=== PATIENT | female | born 1965 | race Caucasian/White ===

== ENCOUNTER 2020-06-21 08:00 | Outpatient (REF) | payer BC, SELFPAY ==
--- NOTE | 2020-06-21 08:05 | MM_ITS ---
EXAMINATION: MM SCREENING DIGITAL BREAST TOMOSYNTHESIS, BILATERAL CLINICAL INFORMATION: Screening. Asymptomatic. The lifetime risk of breast cancer based on the Tyrer-Cuzick Model is 13%. COMPARISON: Mammography: 06/19/2019, 06/12/2018, 05/22/2017 TECHNIQUE: Digital breast tomosynthesis is performed in both the craniocaudal and mediolateral oblique views along with computer-aided detection (CAD). Synthesized 2D images are generated from the tomosynthesis. FINDINGS: There are scattered areas of fibroglandular density (ACR BI-RADS breast composition Category b). There are no significant masses, abnormal calcifications, or other abnormalities. Parenchymal pattern is similar to prior exams. There is no developing density. No significant changes. MM/MM tomosynthesis screening BI IMPRESSION: No mammographic evidence of malignancy. ASSESSMENT: BI-RADS 1: Negative RECOMMENDATION: Routine annual mammography screening. This patient's information was entered into a reminder system with a target due date for their next mammogram.
== END 2020-06-21 08:01 | disposition home or self-care (01) ==
LOC: HO.MAMMO 08:00
PROVIDERS: PCP Internal Medicine; Visit Provider Internal Medicine
DX: Z12.31 Encounter for screening mammogram for malignant neoplasm of breast (principal)
CPT/HCPCS: 77063; 77067

== ENCOUNTER 2021-01-08 08:16 | Outpatient (REF) | payer BC, SELFPAY ==
--- NOTE | ~2021-01-08 | XR_ITS ---
EXAMINATION: XR CHEST CLINICAL INFORMATION: Asthma. Cough and wheezing. COMPARISON: Previous chest x-ray most recent September 2017 TECHNIQUE: 2 views of the chest were obtained. FINDINGS: The cardiac and mediastinal contours are stable. There is a 1 cm nodule in the left lung base. This is not seen on the lateral view and may represent a nipple shadow. The lungs are otherwise clear. There is no pleural effusion or pneumothorax. There are mild degenerative changes of the spine. XR/XR chest 2V IMPRESSION: 1 cm nodule at the left lung base, question representing a nipple shadow. Follow-up chest x-ray with nipple markers recommended. Otherwise unremarkable exam.
[2021-01-08 08:49] LABS: Basophils Percent Auto 1.2 % (0-2); Eosinophils Absolute Auto 0.1 X10*3/uL (0.0-0.4); Eosinophils Percent Auto 4.3 % (0-4); Hematocrit 40.4 % (37-47); Hemoglobin 13.2 g/dl (12.0-16.0); Imm Gran Abs Auto 0.02 X10*3/uL (0.00-0.03); Imm Gran Pct Auto 0.6 % (0.0-0.4); Lymphocytes Absolute Auto 1.3 X10*3/uL (1.2-4.9); Lymphocytes Percent Auto 39.6 % (20-40); MANUAL DIFF FLAG NO; Mean Corpuscular HGB Conc 32.7 g/dl (31.0-35.0); Mean Corpuscular Hemoglobin 32.1 pg (27.0-33.0); Mean Corpuscular Volume 98.3 fL (80-98); Mean Platelet Volume 9.8 fL (9.4-12.3); Monocytes Absolute Auto 0.4 X10*3/uL (0.1-1.2); Monocytes Percent Auto 12.9 % (2-11); Neutrophils Absolute Auto 1.4 X10*3/uL (2.0-8.3); Neutrophils Percent Auto 41.4 % (45-73); Platelet Count 214 X10*3/uL (160-400); Red Blood Count 4.11 X10*6/uL (4.20-5.50); Red Cell Distribution Width 12.7 % (11.0-16.0); White Blood Count 3.3 X10*3/uL (4.8-10.8)
[2021-01-08 09:23] LABS: Anion Gap 14 (12-20); Blood Urea Nitrogen 13 mg/dL (9-16); Calcium 9.3 mg/dL (8.4-10.2); Carbon Dioxide 27 mmol/L (22-29); Chloride 105 mmol/L (96-108); Estimated Glomerular Filt Rate > 60; Glucose Random 105 mg/dL (60-115); Potassium 4.6 mmol/L (3.3-5.1); Sodium 141 mmol/L (135-145)
[2021-01-08 09:34] LABS: Free T4 (Free Thyroxine) 1.32 ng/dL (0.71-1.85); Thyroid Stimulating Hormone 5.59 uIU/mL (0.32-4.0)
== END 2021-01-08 08:17 | disposition home or self-care (01) ==
LOC: HO.LAB 08:16
PROVIDERS: PCP Internal Medicine; Visit Provider Internal Medicine
DX: J45.909 Unspecified asthma, uncomplicated (principal); E03.9 Hypothyroidism, unspecified; R05 Cough
CPT/HCPCS: 36415; 71046; 80048; 84439; 84443; 85025

== ENCOUNTER 2021-01-15 10:08 | Outpatient (REF) | payer BC, SELFPAY ==
--- NOTE | ~2021-01-15 | XR_ITS ---
EXAMINATION: XR CHEST CLINICAL INFORMATION: Follow-up abnormal chest radiograph. COMPARISON: Chest radiograph dated 01/08/2021. TECHNIQUE: 2 views of the chest were obtained. FINDINGS: No airspace consolidation. Previously seen possible nodule along the left lung base is not appreciated on the current examination. No pleural effusion or pneumothorax. Stable cardiomediastinal silhouette. XR/XR chest 2V IMPRESSION: Unremarkable examination. Previously seen possible nodule in the left lung base not appreciated on the current examination.
== END 2021-01-15 10:09 | disposition home or self-care (01) ==
LOC: HO.XRAY 10:08
PROVIDERS: PCP Internal Medicine; Visit Provider Internal Medicine
DX: R91.8 Other nonspecific abnormal finding of lung field (principal)
CPT/HCPCS: 71046

== ENCOUNTER 2021-08-20 07:41 | Outpatient (REF) | payer BC, SELFPAY ==
--- NOTE | ~2021-08-20 | MM_ITS ---
EXAMINATION: MM SCREENING DIGITAL BREAST TOMOSYNTHESIS, BILATERAL CLINICAL INFORMATION: Screening. Asymptomatic. The lifetime risk of breast cancer based on the Tyrer-Cuzick Model is 12%. COMPARISON: Mammography: 06/21/2020, 06/19/2019, 06/12/2018, 05/22/2017 TECHNIQUE: Digital breast tomosynthesis is performed in both the craniocaudal and mediolateral oblique views along with computer-aided detection (CAD). Synthesized 2D images are generated from the tomosynthesis. Additional right CC view is provided. FINDINGS: There are scattered areas of fibroglandular density (ACR BI-RADS breast composition Category b). The right breast is unremarkable. There is no interval mass or architectural abnormality or developing density. Neither breast shows abnormal calcifications. The axilla and skin contours are unremarkable. Left CC view has 0.4 cm nodular asymmetry posterior outer film margin approximately 14 cm from nipple. Finding is likely beyond field of view on most prior exams. Patient will be recalled for additional imaging. MM/MM tomosynthesis screening BI IMPRESSION: 1. Left: Small nodular asymmetric density at posterior film margin CC view 14 cm from nipple. 2. Right: No mammographic evidence of malignancy. ASSESSMENT: BI-RADS 0: Incomplete - Need Additional Imaging Evaluation RECOMMENDATION: 1. Additional views of the left breast (exaggerated CC, MLO changed angle). 2. Targeted ultrasound if warranted after review of the additional views. 3. Radiology department staff will contact the patient for additional imaging. This patient's information was entered into a reminder system with a target due date for their next mammogram.
== END 2021-08-20 07:42 | disposition home or self-care (01) ==
LOC: HO.MAMMO 07:41
PROVIDERS: Visit Provider Internal Medicine
DX: Z12.31 Encounter for screening mammogram for malignant neoplasm of breast (principal)
CPT/HCPCS: 77063; 77067

== ENCOUNTER 2021-08-29 13:28 | Outpatient (REF) | payer BC, SELFPAY ==
--- NOTE | ~2021-08-29 | MM_ITS ---
EXAMINATION: MM DIAGNOSTIC DIGITAL BREAST TOMOSYNTHESIS, LEFT CLINICAL INFORMATION: Recall from screening for small nodular asymmetric density near posterior film margin outer left breast review. Finding beyond field of view on other prior outside exams. COMPARISON: Mammography: 08/20/2021, 06/21/2020, 06/19/2019, 06/12/2018 TECHNIQUE: Digital breast tomosynthesis is performed. 2D images are generated from the tomosynthesis. The following views are obtained: Exaggerated CC, steep MLO. FINDINGS: There are scattered areas of fibroglandular density (ACR BI-RADS breast composition Category b). The additional views demonstrate a small intramammary node posterior outer left breast corresponding to the finding on recent mammography. Margins are circumscribed with small notched hilus. Results are discussed with the patient at time of visit. MM/MM tomosynthesis added views L IMPRESSION: Additional views show incidental small intramammary node posterior outer left breast. ASSESSMENT: BI-RADS 2: Benign RECOMMENDATION: Routine annual mammography screening. This patient's information was entered into a reminder system with a target due date for their next mammogram.
== END 2021-08-29 13:29 | disposition home or self-care (01) ==
LOC: HO.MAMMO 13:28
PROVIDERS: PCP Internal Medicine; Visit Provider Internal Medicine
DX: N64.89 Other specified disorders of breast (principal)
CPT/HCPCS: 77061; 77065

== ENCOUNTER 2021-09-30 10:33 | Outpatient (REF) | payer BC, SELFPAY ==
[2021-09-30 11:50] LABS: Influenza A PCR NEGATIVE (Negative); Influenza B PCR NEGATIVE (Negative); Resp Syncy Virus RNA Qual PCR NEGATIVE (Negative); SARS COV2 PCR INHOUSE POSITIVE (Negative)
== END 2021-09-30 10:34 | disposition home or self-care (01) ==
LOC: HO.LNP 10:33
PROVIDERS: Visit Provider Internal Medicine
DX: R09.89 Other specified symptoms and signs involving the circulatory and respiratory systems (principal); Z20.822 Contact with and (suspected) exposure to COVID-19
CPT/HCPCS: 0241U

== ENCOUNTER 2022-09-23 10:52 | Outpatient (REF) | payer BC, SELFPAY | END 2022-09-23 10:53 | disposition home or self-care (01) | LOC: HO.LAB 10:52 | PROVIDERS: PCP Internal Medicine; Visit Provider Internal Medicine | DX: Z13.89 Encounter for screening for other disorder (principal) ==

== ENCOUNTER 2022-09-30 09:49 | Outpatient (REF) | payer BC, SELFPAY ==
[2022-09-30 10:00] LABS: MANUAL DIFF FLAG NO
[2022-09-30 10:30] LABS: Basophils Percent Auto 0.7 % (0-2); Eosinophils Absolute Auto 0.1 X10*3/uL (0.0-0.4); Eosinophils Percent Auto 1.9 % (0-4); Hemoglobin 14.2 g/dl (12.0-16.0); Imm Gran Abs Auto 0.04 X10*3/uL (0.00-0.03); Imm Gran Pct Auto 0.7 % (0.0-0.4); Lymphocytes Absolute Auto 1.6 X10*3/uL (1.2-4.9); Lymphocytes Percent Auto 30.3 % (20-40); Mean Corpuscular HGB Conc 33.8 g/dl (31.0-35.0); Mean Corpuscular Hemoglobin 32.2 pg (27.0-33.0); Mean Corpuscular Volume 95.2 fL (80.0-98.0); Monocytes Absolute Auto 0.6 X10*3/uL (0.1-1.2); Monocytes Percent Auto 10.9 % (2-11); Neutrophils Percent Auto 55.5 % (45-73); Platelet Count 271 X10*3/uL (160-400); Red Blood Count 4.41 X10*6/uL (4.20-5.50); Red Cell Distribution Width 12.7 % (11.0-16.0); White Blood Count 5.3 X10*3/uL (4.8-10.8)
[2022-09-30 11:30] LABS: Alanine Aminotransferase 41 U/L (0-31); Albumin Level 4.3 g/dL (3.5-5.0); Alkaline Phosphatase 66 U/L (39-117); Anion Gap 14 (12-20); Aspartate Amino Transferase 25 U/L (5-31); Bilirubin Total 0.7 mg/dL (0.0-1.0); Blood Urea Nitrogen 12 mg/dL (9-16); Calcium 9.2 mg/dL (8.4-10.2); Carbon Dioxide 26 mmol/L (22-29); Chloride 103 mmol/L (96-108); Cholesterol 249 mg/dL; Estimated Glomerular Filt Rate > 60; Glucose Fasting 109 mg/dL (60-99); HDL Cholesterol 61 mg/dL; LDL Cholesterol Calculated 136 mg/dl; Potassium 4.4 mmol/L (3.3-5.1); Sodium 139 mmol/L (135-145); Total Protein 6.9 g/dL (6.5-8.0); Triglycerides 262 mg/dL
[2022-09-30 11:48] LABS: Free T4 (Free Thyroxine) 0.99 ng/dL (0.71-1.85); Thyroid Stimulating Hormone 6.93 uIU/mL (0.32-4.0)
== END 2022-09-30 09:50 | disposition home or self-care (01) ==
LOC: HO.LAB 09:49
PROVIDERS: PCP Internal Medicine; Visit Provider Internal Medicine
DX: Z00.00 Encounter for general adult medical examination without abnormal findings (principal); E03.9 Hypothyroidism, unspecified
CPT/HCPCS: 36415; 80053; 80061; 84439; 84443; 85025

== ENCOUNTER 2022-10-13 14:47 | Outpatient (REF) | payer BC, SELFPAY ==
--- NOTE | ~2022-10-13 | MM_ITS ---
EXAMINATION: BONE DENSITOMETRY CLINICAL INDICATION: Asymptomatic menopausal state. COMPARISON: This is the patient's baseline examination. TECHNIQUE: Using a [employer] DXA System (software version: 13.1) manufactured by [employer], dual-energy x-ray absorptiometry was performed of the lumbar spine and left hip. The images are of good technical quality. Summary results are attached. FINDINGS: AP SPINE L1-L4: BMD 1.330 g/cm2, Z-score 1.5, T-score 1.3, normal. LEFT FEMUR, NECK: BMD 0.936 g/cm2, Z-score -0.1, T-score -0.7, normal. LEFT FEMUR, TOTAL: BMD 0.979 g/cm2, Z-score 0.0, T-score -0.2, normal. IDENTIFIED RISK FACTORS: Menopause. HISTORY OF FRACTURE: None listed. MEDICATIONS: None listed. MM/XR DEXA axial skeleton IMPRESSION: 1. DIAGNOSIS: Normal bone density based on the lowest T-score value of -0.7 in the femoral neck applying World Health Organization criteria. 2. 10-YEAR FRACTURE RISK PREDICTION, FRAX: According to the guidelines, FRAX calculation should only be performed on patients in the osteopenia bone density category. Therefore, FRAX was not performed on this patient. 3. Treatment Recommendations: NOF guidelines recommend consideration for treatment in postmenopausal women and men age 50 and older presenting with the following: -A hip or vertebral (clinical or morphometric) fracture. -T-score less than or equal to -2.5 at the femoral neck or spine after appropriate evaluation to exclude secondary causes. -Low bone mass at the hip or spine and a 10-year fracture probability by FRAX of greater than or equal to 3% for hip fracture or greater than or equal to 20% for major osteoporotic fracture based on the [place] adapted WHO algorithm. 4. Other Recommendations: All treatment decisions require clinical judgment and consideration of individual patient factors, including patient preferences, comorbidities, previous drug use, risk factors not captured in the FRAX model (e.g. frailty, falls, vitamin D deficiency, increased bone turnover, interval significant decline in bone density) and possible under or overestimation of fracture risk by FRAX. FUTURE SCAN RECOMMENDATION: People with diagnosed cases of osteoporosis or at high risk for fracture should have regular bone mineral density tests. For patients eligible for Medicare, routine testing is allowed once every 2 years. The testing frequency can be increased to one year for patients who have rapidly progressing disease, those who are receiving or discontinuing medical therapy to restore bone mass, or have additional risk factors.
--- NOTE | ~2022-10-13 | MM_ITS ---
EXAMINATION: MM SCREENING DIGITAL BREAST TOMOSYNTHESIS, BILATERAL CLINICAL INFORMATION: Screening. Asymptomatic. The lifetime risk of breast cancer based on the Tyrer-Cuzick Model is 8%. COMPARISON: Mammography: August 29, 2021 and studies dating back to February 13, 2007 TECHNIQUE: Digital breast tomosynthesis is performed in both the craniocaudal and mediolateral oblique views along with computer-aided detection (CAD). Synthesized 2D images are generated from the tomosynthesis. FINDINGS: There are scattered areas of fibroglandular density (ACR BI-RADS breast composition Category b). There are no significant masses, abnormal calcifications, or other abnormalities. MM/MM tomosynthesis screening BI IMPRESSION: No significant changes from prior exam. ASSESSMENT: BI-RADS 1: Negative RECOMMENDATION: Routine annual mammography screening. This patient's information was entered into a reminder system with a target due date for their next mammogram.
== END 2022-10-13 14:48 | disposition home or self-care (01) ==
LOC: HO.MAMMO 14:47
PROVIDERS: Visit Provider Internal Medicine
DX: Z12.31 Encounter for screening mammogram for malignant neoplasm of breast (principal); Z13.820 Encounter for screening for osteoporosis; Z78.0 Asymptomatic menopausal state
CPT/HCPCS: 77063; 77067; 77080

== ENCOUNTER 2023-05-07 11:07 | Outpatient (AMB) | payer BC, SELFPAY ==
[2023-05-07 13:32] VITALS: BP 160/92; PULSE 85; TEMP 36.4; O2SAT 96; BMI 33.9
--- NOTE | 2023-05-07 13:32 | MHC.OFFWIV ---
Intake Vital Signs 05/07/23 13:32 Height 5 ft 5 in Weight 92.533 kg BMI 33.9 BP 160/92 H Blood Pressure Location Rt brachial Position Sitting Pulse 85 Pulse Source Pulse Oximeter Temp 97.6 F Temp Source Temporal Artery Scan Pulse Oximetry (%) 96 Intake Visit Reasons: EST/Left hand broken pinky (lobby) Intake Note: pt is here for c/o left hand possible broken pinky Patient Tobacco Use Status: Never used Tobacco Allergies No Known Allergies [No Known Allergies*] Allergy (Verified 05/07/23 13:32) Do you need a note to return to daycare/school/sports/work: Yes HPI EST/Left hand broken pinky (lobby) HPI Details Patient experienced a fall today while walking her dog, jamming her left 5th digit in an attempt to catch her fall. She noted initially the digit was laterally displaced at the MCP joint although with ice and elevation it seemed to go back into place. She is having swelling and pain at the MCP joint but is able to move MCP PIP DI P. Denies other injury. [facility] Social History Patient Tobacco Use Status: Never used Tobacco Review of Systems Const Reports as per HPI and Reports no additional complaints Skin/Breast Denies lesions Neuro Reports no additional complaints and Reports as per HPI Physical Exam Vital Signs: Last Vital Signs Temp 97.6 F 05/07/23 13:32 Pulse 85 05/07/23 13:32 BP 160/92 H 05/07/23 13:32 Pulse Ox 96 05/07/23 13:32 BMI result Body Mass Index 33.9 Const General: cooperative, comfortable and no acute distress Orientation/consciousness: patient oriented x3 Resp Effort & Inspection: normal respiratory effort Auscultation: clear to auscultation bilaterally Cardio Rate: regular rate Rhythm: regular rhythm Heart sounds: S1 normal heart sound present and S2 normal heart sound present Neuro General: patient oriented x3 Extrem Left upper extremity: wrist (Within normal limits) and hand Details: neuromotor exam normal, neurosensory exam normal, tendon exam normal, tenderness Location: of the 5th digit (MCP to PIP), normal ROM of fingers and swelling (Most prominent over 5th MCP); no abrasions, no lacerations and no ecchymosis Results Reviewed Results Reviewed: X-ray contemporaneously read by me without acute finding. Will report radiology results as available. Assessment & Plan Assessment & Plan (1) Hand injury: Code(s): S69.90XA - Unspecified injury of unspecified wrist, hand and finger(s), initial encounter Qualifiers: Encounter type: initial encounter Laterality: left Qualified Code(s): S69.92XA - Unspecified injury of left wrist, hand and finger(s), initial encounter Plan: Patient advised to rest ice and elevate. Gentle range of motion daily as tolerated. I sent a prescription for ibuprofen 800 mg t.i.d. can reduce dosage and frequency has pain and swelling resolves. I have placed an orthopedics referral in case symptoms persisted she may need OT for further evaluation, can cancel order for if symptoms improve. 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 Orders: Referrals Orthopedics Referral S69.90XA - Unspecified injury of unspecified wrist, hand and finger(s), initial encounter Medications: New ibuprofen TID x 3 weeks for left knee pain then PRN thereafter for pain 800 mg PO TID 90 tabs 0RF Coding Level of Care Code Est Pt Level 4 (33054) Diagnoses Injury of left hand, initial encounter S69.92XA Encounter type: initial encounter Laterality: left
== END 2023-05-07 14:32 | disposition home or self-care (01) ==
PROVIDERS: PCP Internal Medicine; Visit Provider Physician Assistant
DX: S69.92XA Unspecified injury of left wrist, hand and finger(s), initial encounter (principal)
CPT/HCPCS: 99214

== ENCOUNTER 2023-05-07 13:56 | Outpatient (REF) | payer BC, SELFPAY ==
--- NOTE | ~2023-05-07 | XR_ITS ---
EXAMINATION: XR HAND, LEFT CLINICAL INFORMATION: Pain after fall COMPARISON: None available. TECHNIQUE: PA, lateral, and oblique views of the left hand. FINDINGS: Visualized portion of the distal radius and ulna demonstrate no fracture. Carpal rows are well-maintained. No carpal bone fracture. No metacarpal or phalangeal fracture. No significant degenerative changes. No focal soft tissue swelling. No radiopaque foreign body. XR/XR hand LT min 3V IMPRESSION: Unremarkable radiographs of the left hand.
== END 2023-05-07 13:57 | disposition home or self-care (01) ==
LOC: HO.HMGCX 13:56
PROVIDERS: PCP Internal Medicine; Visit Provider Physician Assistant
DX: S69.92XA Unspecified injury of left wrist, hand and finger(s), initial encounter (principal)
CPT/HCPCS: 73130

== ENCOUNTER 2023-05-23 09:20 | Outpatient (REF) | payer BC, SELFPAY ==
--- NOTE | ~2023-05-23 | XR_ITS ---
EXAMINATION: XR HAND, RIGHT CLINICAL INFORMATION: Pain COMPARISON: Right hand radiograph from 11/01/2019 TECHNIQUE: 5 views of the right hand. FINDINGS: No acute visible fracture or dislocation. Mild multi joint arthritic changes. Joint spaces and alignment are otherwise maintained. Soft tissues are unremarkable. XR/XR hand RT min 3V IMPRESSION: 1. No acute visible fracture or dislocation. 2. Mild multi joint arthritic changes.
== END 2023-05-23 09:21 | disposition home or self-care (01) ==
LOC: HO.HOSX 09:20
PROVIDERS: PCP Internal Medicine; Visit Provider Physician Assistant
DX: S63.601A Unspecified sprain of right thumb, initial encounter (principal); S63.617A Unspecified sprain of left little finger, initial encounter
CPT/HCPCS: 73130

== ENCOUNTER 2023-05-23 09:20 | Outpatient (AMB) | payer BC, SELFPAY ==
--- NOTE | 2023-05-23 09:37 | MHC.OFFVIS ---
Intake Vital Signs 05/23/23 09:44 Height 5 ft 5 in Weight 204 lb BMI 33.9 Intake Visit Reasons: N/P right pinky/thumb Intake Note: Kylie 58 year old female who is left hand dominant presents today for a new patient visit for her right thumb and left little finger. She was walking her daughters dog on 05/07/23 and was holding on to the railing and injured her pinky and thumb while attempting to catch her fall. States currently thumb is still swollen and limited ROM in her pinky. Denies numbness or tingling. Allergies No Known Allergies [No Known Allergies*] Allergy (Verified 05/23/23 09:44) HPI N/P right pinky/thumb HPI Details Ms. Seaman is a 58 year old left hand dominant female who presents today for a new patient visit for her right thumb and left little finger. She was walking her daughters dog on 05/07/23 and was holding on to the railing when the dog pulled the leash causing her to injure her left little finger and right thumb while attempting to catch her fall. States currently right thumb is still swollen and slightly limited ROM in her left little finger. Denies numbness or tingling. PFS (Updated 05/23/23 @ 09:44 by KALEY Cartagena) Patient Tobacco Use Status: Never used Tobacco Current occupational status: employed Current occupation: left hand / customer service Review of Systems Const All systems reviewed & are unremarkable except as noted in HPI and below Physical Exam Vital Signs: BMI result Body Mass Index 33.9 Extrem Other: Left little finger edema located over the CMC joint. Mild tenderness to palpation of the CMC joint. No laxity the CMC, PIP or DIP. Able to make a full fist. Able to perform abduction adduction with mild difficulty. Sensation is intact. Cap refill is brisk. Right thumb tenderness to palpation at the CMC joint accompanied by mild edema. Full range of motion. Pain with axial loading. Able to flex and extend at the IP joint. Sensation is intact. Cap refill is brisk. Assessment & Plan Assessment & Plan (1) Sprain of right thumb: Code(s): S63.601A - Unspecified sprain of right thumb, initial encounter Plan: Ms. Seaman is a 58 year old left hand dominant female who presents today for a new patient visit for her right thumb and left little finger. She was walking her daughters dog on 05/07/23 and was holding on to the railing when the dog pulled the leash causing her to injure her left little finger and right thumb while attempting to catch her fall. States currently right thumb is still swollen and slightly limited ROM in her left little finger. Denies numbness or tingling. X-rays of the right hand were obtained in our office today and negative for any acute fracture dislocation. Patient had x-rays obtained of the left hand on 05/07/2023 which were negative for any acute fracture dislocation of the left hand. I educated the patient that she should perform activity modification until her pain resolves and continue working on range of motion activities such as making a closed fist and extending all digits to avoid any stiffness. Patient understands and accepts. She will follow-up p.r.n. sooner if needed. (2) Sprain of left little finger: Code(s): S63.617A - Unspecified sprain of left little finger, initial encounter Orders: Orders XR hand RT min 3V Today M79.643 - Pain in unspecified hand Coding Level of Care Code New Pt Level 4 (90157) Diagnoses Sprain of right thumb S63.601A Sprain of left little finger S63.617A
[2023-05-23 09:44] VITALS: BMI 33.9
== END 2023-05-23 10:43 | disposition home or self-care (01) ==
PROVIDERS: PCP Internal Medicine; Visit Provider Physician Assistant
DX: S63.601A Unspecified sprain of right thumb, initial encounter (principal); S63.617A Unspecified sprain of left little finger, initial encounter
CPT/HCPCS: 99203

== ENCOUNTER 2023-10-18 15:55 | Outpatient (REF) | payer BC, SELFPAY ==
--- NOTE | ~2023-10-18 | MM_ITS ---
EXAMINATION: MM SCREENING DIGITAL BREAST TOMOSYNTHESIS, BILATERAL CLINICAL INFORMATION: Screening. Asymptomatic. COMPARISON: Mammography: This study is compared with prior exams dating back to 2019. TECHNIQUE: Digital breast tomosynthesis is performed in both the craniocaudal and mediolateral oblique views along with computer-aided detection (CAD). Synthesized 2D images are generated from the tomosynthesis. FINDINGS: There are scattered areas of fibroglandular density (ACR BI-RADS breast composition Category b). The 6:00 region of the right breast, in the CC projection only, there is a small rounded asymmetry which warrants additional mammographic and targeted sonographic evaluation. In the left breast, there are no significant masses, abnormal calcifications, or other abnormalities. MM/MM tomosynthesis screening BI IMPRESSION: Asymmetry of the right breast warrants additional mammographic and targeted sonographic imaging. No mammographic signs of malignancy left breast. ASSESSMENT: BI-RADS BI-RADS 0 - Incomplete: Needs additional Imaging. RECOMMENDATION: 1. Additional views of the right breast 2. Targeted ultrasound if warranted after review of the additional views. 3. Radiology department staff will contact the patient for additional imaging. Additional Imaging required This examination should not preclude the clinical evaluation of a suspicious palpable abnormality. This patient's information was entered into a reminder system with a target due date for their next mammogram.
== END 2023-10-18 15:56 | disposition home or self-care (01) ==
LOC: HO.MAMMO 15:55
PROVIDERS: PCP Internal Medicine; Visit Provider Internal Medicine
DX: Z12.31 Encounter for screening mammogram for malignant neoplasm of breast (principal)
CPT/HCPCS: 77063; 77067

== ENCOUNTER → 2023-10-18 16:00 | Outpatient (BNV) | payer BC, SELFPAY | PROVIDERS: PCP Internal Medicine; Visit Provider Radiology Diagnostic Radiology | DX: Z12.31 Encounter for screening mammogram for malignant neoplasm of breast (principal) | CPT/HCPCS: 77063; 77067 ==

== ENCOUNTER 2023-12-03 12:53 | Outpatient (REF) | payer BC, SELFPAY ==
--- NOTE | ~2023-12-03 | MM_ITS ---
EXAMINATION: MM DIAGNOSTIC DIGITAL BREAST TOMOSYNTHESIS, RIGHT CLINICAL INFORMATION: 1 view asymmetry present central right breast along the nipple line on CC view only. COMPARISON: Mammography: Screening 10/18/2023, and mammography exams dating back to 2018. TECHNIQUE: Digital breast tomosynthesis is performed. 2D images are generated from the tomosynthesis. The following views are obtained: Full-field 3-D digital right ML view, as well as spot compression 3-D right CC view. FINDINGS: There are scattered areas of fibroglandular density (ACR BI-RADS breast composition Category b). Additional views show no persistent suspicious abnormality. The finding in the mid CC projection dissipates completely and is consistent with superimposition artifact of normal overlapping tissues. There are no suspicious findings. Review of the right ML view demonstrates a stable parenchymal pattern with no suspicious abnormalities. No skin or axillary abnormality. MM/MM tomosynthesis added views R IMPRESSION: No persistent findings suspicious for malignancy. Finding of interest is consistent with superimposition artifact of normal overlapping breast tissues. It does not persist. Recommend the patient return to routine annual screening. ASSESSMENT: BI-RADS BI-RADS 1 - Negative RECOMMENDATION: 1 year F/U Results were provided to the patient at time of visit by the technologist. This patient's information was entered into a reminder system with a target due date for their next mammogram.
== END 2023-12-03 12:54 | disposition home or self-care (01) ==
LOC: HO.MAMMO 12:53
PROVIDERS: PCP Internal Medicine; Visit Provider Internal Medicine
DX: N64.89 Other specified disorders of breast (principal)
CPT/HCPCS: 77061; 77065

== ENCOUNTER → 2023-12-03 13:00 | Outpatient (BNV) | payer BC, SELFPAY | PROVIDERS: PCP Internal Medicine; Visit Provider Radiology Diagnostic Radiology | DX: R92.8 Other abnormal and inconclusive findings on diagnostic imaging of breast (principal) | CPT/HCPCS: 77061; 77065 ==

== ENCOUNTER 2024-10-31 07:16 | Outpatient (REF) | payer BC, SELFPAY | END 2024-10-31 07:17 | disposition home or self-care (01) | LOC: HO.MAMMO 07:16 | PROVIDERS: Visit Provider Internal Medicine | DX: Z12.31 Encounter for screening mammogram for malignant neoplasm of breast (principal) | CPT/HCPCS: 77063; 77067 ==

== ENCOUNTER → 2024-10-31 07:30 | Outpatient (BNV) | payer BC, SELFPAY | PROVIDERS: Visit Provider Internal Medicine | DX: Z12.31 Encounter for screening mammogram for malignant neoplasm of breast (principal) | CPT/HCPCS: 77063; 77067 ==

== ENCOUNTER 2025-02-25 15:57 | Outpatient (AMB) | payer BC, SELFPAY ==
--- NOTE | 2025-02-25 16:07 | MHC.PC.OV ---
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 Accompanied by: Self / Same As Patient Allergies No Known Allergies (No Known Allergies*) Allergy (Verified 02/25/25 16:08) Medication List - Last Reconciled 02/25/25 by DARIANA Solomon fluoxetine 20 mg PO DAILY levothyroxine 125 mcg PO DAILY lorazepam 0.5 mg PO DAILY PRN losartan 25 mg PO DAILY Tobacco use date assessed: 02/25/25 Dental Screening Dental Screen Date: 02/25/25 Did you have a dental visit in the last 12 months?: Yes Did you have a dental problem in the last 6 months where you did not have access to dental care?: No Was dental information given to patient?: No HPI HPI Comments History of Present Illness Details 59-year-old female with history of hypothyroidism, generalized anxiety disorder, hypertension presents to the office today for management of chronic conditions and to establish care. Hypertension-no longer on antihypertensive agents. Previously on metoprolol. Blood pressure in the office today 160/80 on recheck Hypothyroidism-overdue for labs. On levothyroxine 125 mcg daily Generalized anxiety disorder-had been previously doing well so at weaned herself off of her fluoxetine. However, recently had unexpected break-up with her partner of 6 years. She has been very nervous and isn't having intermittent episodes of panic. Feels herself over thinking and is also confused. She has recently started with a therapist. She also has healthy coping mechanisms such as deep breathing exercises, social supports, and is engaging in therapeutic exercises. No SI/HI Concerns: As above Health maintenance: Last screening mammogram 10/2024 with 1 year follow-up advised, negative for malignancy Last screening colonoscopy 08/2013 with 10 year follow-up advised. Dr. Loja. Overdue but will address at next visit ROS: General: No fevers, malaise, unintentional weight loss HEENT: No blurred vision, diplopia. No sore throat, nasal congestion, rhinorrhea, sinus pain, ear pain Cardiovascular: No chest pain, palpitations, or leg edema Respiratory: No shortness of breath, wheezing, cough GI: No abdominal pain, nausea, vomiting, diarrhea, constipation, melena, hematochezia : No dysuria, hematuria, increased urinary frequency, decreased urinary output MSK: No myalgia, back pain Neuro: No headaches, weakness, paresthesias Psych: See HPI Skin: No rashes or lesions EXAM: Constitutional - Awake and Alert, No apparent distress Eyes - PERRL Cardiovascular - S1S2, RRR, No edema Respiratory - Normal lung expansion, Normal respiratory effort, No respiratory distress, CTA bilaterally Extremities - no calf tenderness bilaterally, no swelling Skin - Warm/Dry Neurological - Alert & oriented x3 Psychological - depressed mood, tearful PFSH Medical History (Updated 02/25/25 @ 17:10 by DARIANA Solomon) Generalized anxiety disorder Hypothyroidism HLD (hyperlipidemia) HTN (hypertension) Surgical History History of colonoscopy (~09/15/13) Social History Housing: House Patient Tobacco Use Status: Former Tobacco user (Quite in 1999) e-Cigarette/Vaping Use: Never Used service: No Current occupational status: employed Current occupation: left hand / customer service Cognitive needs: No Hearing needs: No Vision needs: Yes (Reading glasses) Questionnaire PHQ-9 Over the last 2 weeks, how often have you been bothered by any of the following problems? 1. Little interest or pleasure in doing things: not at all 2. Feeling down, depressed, or hopeless: several days 3. Trouble falling or staying asleep, or sleeping too much: several days 4. Feeling tired or having little energy: not at all 5. Poor appetite or overeating: not at all 6. Feeling bad about yourself - or that you are a failure or have let yourself or your family down: not at all 7. Trouble concentrating on things, such as reading the newspaper or watching television: not at all 8. Moving or speaking so slowly that other people could have noticed. Or the opposite - being so fidgety or restless that you have been moving around a lot more than usual: not at all 9. Thoughts that you would be better off or of hurting yourself in some way: not at all Total score: 2 Depression Screening Interpretation: Negative Depression Screening Done: Yes 53795 - PHQ-9 Billing: Yes Source: Developed by Drs. Curtis King, Michael Moon and colleagues, with an educational anat from [employer]. Thrive Questionnaire Date Thrive assessed: 02/25/25 I am a: Patient What is your living situation today?: I have a steady place to live Within the past 12 months, did the food you bought not last and you didn't have the money to get more?: Never true Within the past 12 months, did you worry whether your food would run out before you got money to buy more?: Never true Do you have trouble paying for medicines?: No Do you have trouble getting transportation to medical appointments?: No Do you have trouble paying your heating and electricity bill?: No Do you have trouble taking care of your child, family member or friend?: No Do you have trouble with day-to-day activities such as bathing, preparing meals, shopping, managing finances, etc.?: No Are you currently unemployed and looking for a job?: No Are you interested in more education?: No Please select the resources that you would like help with: None THRIVE Score: 0 MARTHA-7 AMB Questionnaire MARTHA-7 Date MARTHA - 7 assessed: 02/25/25 Feeling nervous, anxious, or on edge: 1 = Several days Not being able to stop or control worryin = Several days Worrying too much about different things: 1 = Several days Trouble relaxin = Several days Being so restless that it is hard to sit still: 0 = Not at all Becoming easily annoyed or irritable: 0 = Not at all Feeling afraid as if something awful might happen: 0 = Not at all Total MARTHA-7 score (0-4 normal; 5-9 mild; 10-14 moderate; 15-21 severe): 4 Source: Developed by Drs. Curtis King, Michael Moon and colleagues, with an educational anat from [employer]. MARTHA-7 Assessment Billing MARTHA-7 Assessment Tool: MARTHA-7 Assessment 10744 Physical exam (Primary Care) Vital Signs: Last Vital Signs Temp 97.8 F 02/25/25 16:14 Pulse 63 02/25/25 16:14 Resp 16 02/25/25 16:14 BP 178/90 H 02/25/25 16:14 Pulse Ox 99 02/25/25 16:14 Oxygen Delivery Method Room Air 02/25/25 16:14 BMI result Body Mass Index 31.8 Tobacco/Smoking Status: Tobacco use Status Tobacco use date assessed 02/25/25 02/25/25 16:15 Patient Tobacco Use Status Former Tobacco user (Quite 02/25/25 16:15 in 1999) e-Cigarette/Vaping Use Never Used 02/25/25 16:15 PHQ-9: PHQ-9 Score PHQ-9: Total score 2 02/25/25 16:26 Depression Screening Interpretation: Negative Thrive Assessment: Date of Thrive Assessment Date Thrive assessed 02/25/25 02/25/25 16:17 Coding Level of Care Code New Pt Level 4 (68740) Complex EM visit Add On G2211 Diagnoses Generalized anxiety disorder F41.1 HTN (hypertension) I10 HLD (hyperlipidemia) E78.5 Hypothyroidism E03.9 Additional Codes MARTHA-7 Assessment Billing - MARTHA-7 Assessment Tool: MARTHA-7 Assessment 13679 ([id number]) PHQ-9 - 01420 - PHQ-9 Billing: Yes ([id number]) Assessment & Plan Assessment & Plan (1) Generalized anxiety disorder: Code(s): F41.1 - Generalized anxiety disorder Category: Medical Plan: Resume fluoxetine 20 mg daily. Continue following with counselor and engage in healthy coping mechanisms. She is also given short course of lorazepam to use only as needed for intermittent panic. Counseled on side effects as well as black box warnings (2) HTN (hypertension): Code(s): I10 - Essential (primary) hypertension Category: Medical Plan: Uncontrolled. Initiate losartan 25 mg daily. Low-sodium diet (3) HLD (hyperlipidemia): Code(s): E78.5 - Hyperlipidemia, unspecified Category: Medical Plan: Lipid panel ordered. (4) Hypothyroidism: Code(s): E03.9 - Hypothyroidism, unspecified Category: Medical Plan: TSH with reflex free T4 ordered. Continue levothyroxine 125 mcg daily. Plan Follow up in the office in 1 month Orders: Orders Basic Metabolic Panel Today E03.9 - Hypothyroidism, unspecified, E78.5 - Hyperlipidemia, unspecified, I10 - Essential (primary) hypertension Lipid Panel Today E03.9 - Hypothyroidism, unspecified, E78.5 - Hyperlipidemia, unspecified, I10 - Essential (primary) hypertension Liver Panel Today E03.9 - Hypothyroidism, unspecified, E78.5 - Hyperlipidemia, unspecified, I10 - Essential (primary) hypertension TSH reflex Free T4 Today E03.9 - Hypothyroidism, unspecified, E78.5 - Hyperlipidemia, unspecified, I10 - Essential (primary) hypertension Medications: New losartan 25 mg PO DAILY 90 tabs 1RF fluoxetine Take 1/2 tab daily x 1 week, then increase to 1 tab daily 20 mg PO DAILY 90 tabs 0RF lorazepam 0.5 mg PO DAILY PRN 30 tabs 0RF anxiety
[2025-02-25 16:14] VITALS: BP 178/90; PULSE 63; RESP 16; TEMP 36.6; O2SAT 99; BMI 31.8
--- OUTSIDE RECORDS SUMMARY | 2025-02-25 17:00 | XMS_ITS | Patient Health Record ---
Author Organization [facility] Address [address] [place] [address] Care Team Providers Care Waste Water Worker Name Role Phone Noel (RETIRED) Chuck FAY Primary Care Provide r Unavailable Curtis Loja Unavailable [phone] Reason For Referral No Information Medications Medication SIG (Take, Route, Frequency, Duration) Notes Start Date End Date Status MoviPrep 100 GM as directed Orally a s directed for 1 dose 06/06/2013 Active Levothyroxine Sodium .125MG Active Problems Problem Type SNOMED Code ICD Code Onset Dates Problem Status W/U Status Risk Notes Problem Colon cancer screening (V76.51) Active confirmed Plan Of Treatment Future Test Test Name Order Date COLONOSCOPY 06/06/2013 Insurance Providers Payer Name Payer Address Payer Phone Subscriber Number Group Number Insured Name Patient Relationship to Insured Coverage Start Date Coverage End Date [facility] [address] [place] [address] [id number] BERNICE SEAMAN Self - patient is the insured Medical (General) History Medical History History ICD Code Denies [place],DM,CVA,Lung disease,renal dise ase Hypothyroidism Surgical History Surgery Date(Month/Year) tubal ligation
== END 2025-02-25 16:36 | disposition home or self-care (01) ==
LOC: HO.HMCHD 15:57
PROVIDERS: Visit Provider Physician Assistant
DX: F41.1 Generalized anxiety disorder (principal); I10 Essential (primary) hypertension; E78.5 Hyperlipidemia, unspecified; E03.9 Hypothyroidism, unspecified

== ENCOUNTER → 2025-02-25 15:57 | Outpatient (BNVA) | payer BC, SELFPAY | PROVIDERS: Visit Provider Physician Assistant | DX: F41.1 Generalized anxiety disorder (principal); I10 Essential (primary) hypertension; E78.5 Hyperlipidemia, unspecified; E03.9 Hypothyroidism, unspecified; Z79.899 Other long term (current) drug therapy; Z13.31 Encounter for screening for depression; Z13.39 Encounter for screening examination for other mental health and behavioral disorders | CPT/HCPCS: 96127 ==

== ENCOUNTER 2025-03-14 08:01 | Outpatient (REF) | payer BC, SELFPAY ==
--- OUTSIDE RECORDS SUMMARY | 2025-03-14 08:04 | XMS_ITS | Patient Health Record ---
Author Organization [facility] Address [address] [place] [address] Care Team Providers Care Deli Worker Name Role Phone Noel (RETIRED) Chuck FAY Primary Care Provide r Unavailable Curtis Loja Unavailable [phone] Reason For Referral No Information Medications Medication SIG (Take, Route, Frequency, Duration) Notes Start Date End Date Status MoviPrep 100 GM as directed Orally a s directed for 1 dose 06/06/2013 Active Levothyroxine Sodium .125MG Active Problems Problem Type SNOMED Code ICD Code Onset Dates Problem Status W/U Status Risk Notes Problem Colon cancer screening ([id number]) Colon cancer screening (V76.51) Active confirmed Plan Of Treatment Future Test Test Name Order Date COLONOSCOPY 06/06/2013 Insurance Providers Payer Name Payer Address Payer Phone Subscriber Number Group Number Insured Name Patient Relationship to Insured Coverage Start Date Coverage End Date [facility] [address] [place] [address] [id number] BERNICE SALEH Self - patient is the insured Medical (General) History Medical History History ICD Code Denies [place],DM,CVA,Lung disease,renal dise ase Hypothyroidism Surgical History Surgery Date(Month/Year) tubal ligation
[2025-03-14 09:24] LABS: Alanine Aminotransferase 21 U/L (0-31); Albumin Level 4.6 g/dL (3.5-5.0); Alkaline Phosphatase 68 U/L (39-117); Anion Gap 13 (12-20); Aspartate Amino Transferase 20 U/L (5-31); Blood Urea Nitrogen 13 mg/dL (9-16); Calcium 9.5 mg/dL (8.4-10.2); Carbon Dioxide 27 mmol/L (22-29); Chloride 104 mmol/L (96-108); Cholesterol 236 mg/dL (<200); Estimated Glomerular Filt Rate > 60; HDL Cholesterol 71 mg/dL (>40); Potassium 3.9 mmol/L (3.3-5.1); Sodium 140 mmol/L (135-145); Total Protein 7.2 g/dL (6.5-8.0); Triglycerides 157 mg/dL (<150)
== END 2025-03-14 08:02 | disposition home or self-care (01) ==
LOC: HO.LAB 08:01
PROVIDERS: PCP Physician Assistant; Visit Provider Physician Assistant
DX: I10 Essential (primary) hypertension (principal); E78.5 Hyperlipidemia, unspecified; E03.9 Hypothyroidism, unspecified
CPT/HCPCS: 36415; 80048; 80061; 80076; 84443